=== PATIENT | female | born 1975 | race African-American/Black ===

== ENCOUNTER 2021-07-15 22:59 | Emergency (ER) | payer SELFPAY ==
[~2021-07-15] VITALS: Ht 165.1 cm; Wt 86.0 kg
[2021-07-16] MEDS ORDERED: LORAZEPAM 1MG TABLET PO ONE (03:45)
[2021-07-16 04:03] LABS: BASOPHILS % 0.6 % (0.0-2.0); EOSINOPHILS % 0.7 % (0.0-5.0); HEMATOCRIT. 39.9 % (36.0-48.0); HEMOGLOBIN. 13.5 g/dL (12.0-16.0); LYMPHOCYTES % 15.3 % (20.0-50.0); MEAN CORPUSCULAR VOLUME 94.8 fL (81.0-99.0); MEAN PLATELET VOLUME 8.5 fl (7.4-10.4); MONOCYTES % 8.2 % (2.0-8.0); NEUTROPHILS % 75.2 % (40.0-76.0); PLATELET 331 x1000/uL (130-400); RED BLOOD CELL COUNT 4.21 mill/uL (4.2-5.4); RED CELL DISTRIBUTION WIDTH 13.1 % (11.6-14.6)
[2021-07-16 04:07] LABS: CHLORIDE 104 mEq/L (98-107)
[2021-07-16] MEDS ORDERED: LORAZEPAM 1MG TABLET PO SCH (04:30)
[2021-07-16] MEDS ORDERED: IBUP-2029 MT (04:55)
[2021-07-16] MEDS ORDERED: B50 MT (04:55)
[2021-07-16 05:24] VITALS: BP 131/74
== END 2021-07-16 05:25 | disposition home or self-care (01) ==
LOC: ER 22:59
DX: R07.89 Other chest pain (principal); F43.8 Other reactions to severe stress; M32.9 Systemic lupus erythematosus, unspecified; Z98.890 Other specified postprocedural states
CPT/HCPCS: 36415; 71045; 80053; 84484; 85025; 93005; 99285